=== PATIENT | male | born 1990 | race Caucasian/White ===

== ENCOUNTER 2019-01-25 00:37 | Emergency (ER) ==
[~2019-01-25] VITALS: Ht 177.8 cm; Wt 80.0 kg
--- NOTE | 2019-01-25 01:12 | NUR ---
Received report from maritza RN while at patient's bedside. Patient transferred from [facility]. Patient had ingested food, and feels like there is a peice still stuck. Patient is alert, oriented. IV placed by maritza RN per hospital protocol. Patient has emesis back, vomiting clear liquids. Aware plan of care is waiting for director information security gastroenterology consult.
--- NOTE | 2019-01-25 01:29 | NUR ---
PT SIGNED CONSENT FOR PROCEDURE IS ON CHART. GI TEAM IS ON WAY. PT HAS IV, IS ON CARDIAC AND VITALS MONITORS.
[2019-01-25] MEDS ORDERED: PROPOFOL 10 MG/ML, 20ML ONE (02:17)
--- NOTE | 2019-01-25 02:35 | NUR ---
procedure started. sedation given.
[2019-01-25] MEDS ORDERED: KETAMINE 10 MG/ML, 20ML ONE (02:36)
[2019-01-25] MEDS ORDERED: MIDAZOLAM 1 MG/ML, 2ML ONE (02:43)
[2019-01-25] MEDS ORDERED: FENTANYL PF 100 MCG/2ML ONE (02:53)
--- NOTE | 2019-01-25 03:05 | NUR ---
Assist RN: Procedure ended. patient drowsy. able to follow command.
--- NOTE | 2019-01-25 03:19 | NUR ---
patient more awake. will continue to monitor. VSS
[2019-01-25 03:21] VITALS: BP 135/76
--- NOTE | 2019-01-25 03:53 | NUR ---
PT AWAKE AND ALERT X4. PT ABLE TO ANSWER APPROPRIATELY. PT ABLE TO SWALLOW WATER WITHOUT COMPLICATIONS. PT AT BEDSIDE. PT AWARE HE WILL BE UNABLE TO DRIVE DUE TO MEDS GIVEN. PT MOVING ALL EXTREMITIES. WILL CONTINUE TO MONITOR.
[2019-01-25] MEDS ORDERED: MIDAZOLAM 1 MG/ML, 2ML IVPush ONE (04:30)
[2019-01-25] MEDS ORDERED: KETAMINE 10 MG/ML, 20ML IV ONE (04:30)
[2019-01-25] MEDS ORDERED: PROPOFOL 10 MG/ML, 20ML IVPush ONE (04:30)
[2019-01-25] MEDS ORDERED: FENTANYL PF 100 MCG/2ML IVPush ONE (04:30)
== END 2019-01-25 04:27 | disposition home or self-care (01) ==
LOC: ED 04:27
DX: T18.128A Food in esophagus causing other injury, initial encounter (principal); X58.XXXA Exposure to other specified factors, initial encounter; Y93.89 Activity, other specified; Y92.89 Other specified places as the place of occurrence of the external cause; Y99.8 Other external cause status
CPT/HCPCS: 43247; 99152; 99153; 99285; J2250; J2704; J3010